=== PATIENT | female | born 1985 | race Caucasian/White ===

== ENCOUNTER 2016-04-05 15:45 | Outpatient (CLI) | payer OTHER | END 2016-04-05 23:00 | disposition home or self-care (01) | LOC: LAB SRH 15:45 | DX: N91.2 Amenorrhea, unspecified (principal) | CPT/HCPCS: 90004; 90074; 90078; 90261; 90364; 90599; 90600; 90605; 90606; 90710; 90851; 92863; 93140; 98480; 99777 ==

== ENCOUNTER 2016-06-08 15:44 | Outpatient (CLI) | payer OTHER ==
--- NOTE | 2016-06-08 17:54 | DIAGNOSTIC IMAGING REPORT ---
PROCEDURE: US OB DETAILED ANATOMIC INDICATION: ANATOMY TECHNIQUE: Contreras scale, color, and spectral Doppler images of the second trimester gravid uterus were obtained. COMPARISON: None. FINDINGS: A single living intrauterine is in vertex presentation. There is regular cardiac activity at a rate of 124 beats per minute. The placenta is posterior and away from the internal cervical os. The cervix is closed measuring approximately 4.5 cm in length. The amniotic fluid volume is subjectively normal. Biparietal diameter 4.7 cm at 20 weeks and 0-day Head circumference 18.3 cm at 20 weeks and 5-day Abdominal circumference 16.2 cm at 21 weeks and 2-day Femur length 3.5 cm at 21 weeks and 0 days Head to abdominal circumference ratio and femur length to abdominal circumference ratios are normal. Estimated weight 397 g Composite gestational age 20 weeks and 5 days, SAM 10/21/2016 There was visualization of a number of normal structures including the intracranial contents, facial features, nuchal region, spine, four-chamber heart and outflow tracts to the extent that could be visualized, diaphragm, fluid-filled stomach, kidneys, abdomen, urinary bladder, upper and lower extremities, and genitals. A three-vessel umbilical cord, normal and placental cord insertion sites were seen. IMPRESSION: 1. Single living intrauterine with a composite gestational age of 20 weeks and 5 days, SAM 10/21/2016 2. Symmetric and normal anatomy. Although the profile was not well seen.
== END 2016-06-08 23:00 ==
LOC: US SRH 15:44
DX: Z34.92 Encounter for supervision of normal pregnancy, unspecified, second trimester (principal); Z3A.20 20 weeks gestation of pregnancy

== ENCOUNTER 2016-06-29 08:50 | Outpatient (CLI) | payer OTHER | END 2016-06-29 23:00 | LOC: LAB SRH 08:50 | DX: Z34.82 Encounter for supervision of other normal pregnancy, second trimester (principal) | CPT/HCPCS: 90039; 90074 ==

== ENCOUNTER → 2016-07-06 | Outpatient (CLI) | payer OTHER ==
--- NOTE | 2016-07-06 08:03 | ED NURSING NOTES ---
Clinical Report - Nurses [facility] [address] [place] [address] 07/06/2016 7:45 Patient: JAMES CORNEJO DISPOSITION / DISCHARGE 08:02 pt is here for lab draw not ED visit. --08:02 Katiana Balderas R.N. Locked/Released at 07/06/2016 8:02 by Katiana Balderas R.N.
--- NOTE | 2016-07-06 08:03 | ED NURSING NOTES ---
Clinical Report - Nurses [facility] [address] [place] [address] 07/06/2016 7:45 Patient: JAMES CORNEJO DISPOSITION / DISCHARGE 08:02 pt is here for lab draw not ED visit. --08:02 Katiana Balderas R.N. Locked/Released at 07/06/2016 8:02 by Katiana Balderas R.N.
--- NOTE | 2016-07-06 08:03 | ED MED RECONCILIATION SUMMARY ---
Patient: JAMES CORNEJO Medication Reconciliation Report [facility] VisitID: [id number] [address] [place] [place] [address] 30y, F Registration Date/Time: 07/06/2016 Weight: (not available) Height/Length: (not available) BMI: (not available) ALLERGIES: The patient's Home Medications are listed below: Not obtained. The source(s) of the original Home Medication information: Not obtained. The following Medications were given to the patient in the Emergency Department: None. The following Medications were prescribed to the patient: None.
--- NOTE | 2016-07-06 08:03 | ED MAR SUMMARY ---
..... Medication Administration Record [facility] [address] [place], [place] [id number] Patient: JAMES CORNEJO Visit ID: [id number] 30y, F Weight: (not available) Height/Length: (not available) BMI: (not available) ALLERGIES:
--- NOTE | 2016-07-06 08:03 | ED MED RECONCILIATION SUMMARY ---
Patient: JAMES CORNEJO Medication Reconciliation Report [facility] VisitID: [id number] [address] [place] [address] 30y, F Registration Date/Time: 07/06/2016 Weight: (not available) Height/Length: (not available) BMI: (not available) ALLERGIES: The patient's Home Medications are listed below: Not obtained. The source(s) of the original Home Medication information: Not obtained. The following Medications were given to the patient in the Emergency Department: None. The following Medications were prescribed to the patient: None.
--- NOTE | 2016-07-06 08:03 | ED MAR SUMMARY ---
..... Medication Administration Record [facility] [address] [place], [place] [id number] Patient: JAMES CORNEJO Visit ID: [id number] 30y, F Weight: (not available) Height/Length: (not available) BMI: (not available) ALLERGIES:
== END ==
LOC: LAB SRH 07:45 → EDSTATUS 07:49 → LAB SRH 07:50
DX: R73.02 Impaired glucose tolerance (oral) (principal)
CPT/HCPCS: 90074; 92652